=== PATIENT | female | born 1985 | race Two or more races ===

== ENCOUNTER 2020-04-12 08:27 | Emergency (ER) | payer SELFPAY ==
[~2020-04-12] VITALS: Ht 185.4 cm; Wt 75.0 kg
[2020-04-12 08:33] VITALS: BP 121/84
== END 2020-04-12 11:51 | disposition home or self-care (01) ==
LOC: ER 08:27
DX: F29 Unspecified psychosis not due to a substance or known physiological condition (principal); Z53.21 Procedure and treatment not carried out due to patient leaving prior to being seen by health care provider
CPT/HCPCS: Z7610 ×2

== ENCOUNTER 2020-04-12 20:14 | Emergency (ER) | payer SELFPAY ==
[~2020-04-12] VITALS: Ht 182.9 cm; Wt 68.0 kg
[2020-04-13 01:17] LABS: BASOPHILS % 0.4 % (0.0-2.0); EOSINOPHILS % 1.5 % (0.0-5.0); HEMATOCRIT. 42.5 % (36.0-48.0); HEMOGLOBIN. 14.6 g/dL (12.0-16.0); LYMPHOCYTES % 37.8 % (20.0-50.0); MEAN CORPUSCULAR HEMOGLOBIN 34.6 pg (28.0-32.0); MEAN CORPUSCULAR VOLUME 100.8 fL (81.0-99.0); MEAN PLATELET VOLUME 8.9 fl (7.4-10.4); MONOCYTES % 9.2 % (2.0-8.0); NEUTROPHILS % 51.1 % (40.0-76.0); PLATELET 193 x1000/uL (130-400); RED BLOOD CELL COUNT 4.22 mill/uL (4.2-5.4); RED CELL DISTRIBUTION WIDTH 12.1 % (11.6-14.6)
[2020-04-13 01:19] LABS: CLARITY URINE CLOUDY (CLEAR); COLOR URINE YELLOW (YELLOW); KETONES URINE NEGATIVE (NEGATIVE); LEUKOCYTE ESTERASE URINE NEGATIVE (NEGATIVE); NITRITE URINE NEGATIVE (NEGATIVE); OCCULT BLOOD URINE NEGATIVE (NEGATIVE); PH URINE 7.5 (4.5-8.0); PROTEIN URINE NEGATIVE (NEGATIVE); SPECIFIC GRAVITY URINE 1.019 (1.005-1.030); UROBILINOGEN URINE 0.2 E.U./dL (0.2-1.0)
[2020-04-13 01:21] LABS: CHLORIDE 104 mEq/L (98-107)
[2020-04-13 01:29] LABS: ETHANOL BLOOD < 10 mg/dL
[2020-04-13 02:08] LABS: *COCAINE SCREEN URINE NEGATIVE (NEGATIVE); METHADONE URINE SCREEN NEGATIVE (NEGATIVE)
[2020-04-13 02:09] LABS: *AMPHETAMINES SCREEN URINE NEGATIVE (NEGATIVE); *BARBITURATES SCREEN URINE NEGATIVE (NEGATIVE); *BENZODIAZEPINES SCREEN URINE NEGATIVE (NEGATIVE); OPIATES URINE SCREEN NEGATIVE (NEGATIVE); PHENCYCLIDINE URINE SCREEN NEGATIVE (NEGATIVE)
[2020-04-13 02:24] LABS: CANNABINOID URINE SCREEN PRESUMTIVE POSITIVE (NEGATIVE)
[2020-04-13] MEDS ORDERED: OLANZAPINE 10MG TABLET PO STA (03:58)
[2020-04-13] MEDS: SPIRONOLACTONE 50MG TABLET PO SCH ×2 (09:00→13:19)
[2020-04-13 12:00] VITALS: BP 124/72
== END 2020-04-13 13:48 | disposition home or self-care (01) ==
LOC: ER 20:14
DX: F29 Unspecified psychosis not due to a substance or known physiological condition (principal); R10.9 Unspecified abdominal pain; J45.909 Unspecified asthma, uncomplicated
CPT/HCPCS: 36415; 80053; 80305; 80307; 80320; 80329; 81003; 85025; 93005; 99285; G0480

== ENCOUNTER 2020-04-19 08:27 | Emergency (ER) | payer MEDICAID, OTHER ==
[~2020-04-19] VITALS: Ht 190.5 cm; Wt 68.0 kg
[2020-04-19 08:29] VITALS: BP 117/77
== END 2020-04-19 12:09 | disposition home or self-care (01) ==
LOC: ER 08:27
DX: Z04.89 Encounter for examination and observation for other specified reasons (principal); J45.909 Unspecified asthma, uncomplicated; F12.10 Cannabis abuse, uncomplicated; Z59.0 Homelessness
CPT/HCPCS: 99281